=== PATIENT | female | born 1975 | race Caucasian/White ===

== ENCOUNTER 2018-12-06 17:39 | Emergency (ER) | payer BC ==
[2018-12-06 18:18] VITALS: BP 112/77
--- NOTE | 2018-12-06 18:32 | UC ---
Headache HPI - HPI Summary HPI Summary: 43-year-old female comes in with a chief complaint of the left sided headache. Headache started 5 days ago. Was a sudden onset it went from 0 to an 8 out of 10 over the course of about 10 minutes. Patient feels like is the worst headache of her life. When she takes Advil it does get rid of the headache but then the headache comes right back. Headache wakes her from sleep. No rash no fevers no chills no change in vision or speech no weakness or numbness. No history of migraines or headaches. No neck pain. - History Of Current Complaint Chief Complaint: UCHeadache Stated Complaint: HOLDER Time Seen by Provider: 12/06/18 18:21 Pain Intensity: 8 - Allergies/Home Medications Allergies/Adverse Reactions: Allergies Allergy/AdvReac Type Severity Reaction Status Date / Time No Known Allergies Allergy Verified 12/06/18 18:18 Home Medications: Home Medications Control 12/06/18 [History] PMH/Surg Hx/FS Hx/Imm Hx Previously Healthy: Yes - Surgical History Surgical History: Yes Surgery Procedure, Year, and Place: csection - Family History Known Family History: Positive: Non-Contributory - Social History Alcohol Use: None Substance Use Type: None Smoking Status (MU): Never Smoked Tobacco Review of Systems All Other Systems Reviewed And Are Negative: Yes Constitutional: Positive: Negative Skin: Positive: Negative Eyes: Positive: Negative ENT: Positive: Negative Respiratory: Positive: Negative Cardiovascular: Positive: Negative Gastrointestinal: Positive: Negative Motor: Positive: Negative Neurovascular: Positive: Negative Musculoskeletal: Positive: Negative Neurological: Positive: Negative Psychological: Positive: Negative Is Patient Immunocompromised?: No Physical Exam Triage Information Reviewed: Yes Appearance: Well-Appearing, Well-Nourished, Pain Distress - MILD Vital Signs: Initial Vital Signs Temp 98.1 F 12/06/18 18:13 Pulse 74 12/06/18 18:13 Resp 18 12/06/18 18:13 BP 112/77 12/06/18 18:13 Pulse Ox 100 12/06/18 18:13 Vital Signs Reviewed: Yes Eye Exam: Normal Eyes: Positive: Conjunctiva Clear ENT: Positive: Pharynx normal, TMs normal, Other - No rash on the side of the face on the left there is no tenderness to palpation of the scalp. No tenderness to palpation of the tragus or the mastoid. No tenderness of the TMJ or on the face. Dental: Positive: Other: - No obvious dental infection Neck: Positive: Supple, Nontender Respiratory: Positive: Lungs clear, Normal breath sounds, No respiratory distress Cardiovascular: Positive: RRR Musculoskeletal: Positive: Strength Intact, ROM Intact Neurological: Positive: Alert, Muscle Tone Normal, Other: - No focal neurologic deficit Psychological: Positive: Age Appropriate Behavior Skin Exam: Normal Skin: Negative: Rashes Headache Course/Dx - Course Course Of Treatment: Because patient reports is the worst headache of her life with sudden onset and it also wakes her from sleep I recommended further evaluation in the emergency department. Patient will go by POV. - Differential Dx/Diagnosis Provider Diagnosis: Head ache Discharge ED - Sign-Out/Discharge Documenting (check all that apply): Patient Departure All imaging exams completed and their final reports reviewed: No Studies - Discharge Plan Condition: Stable Disposition: HOME-RECOMMEND TO ED Patient Education Materials: Acute Headache (ED) Referrals: Max Baker MD [Primary Care Provider] - Additional Instructions: GO DIRECTLY TO THE EMERGENCY DEPARTMENT FOR FURTHER EVALUATION AND CARE OF YOUR HEADACHE. - Billing Disposition and Condition Condition: STABLE Disposition: Home-Recommend to ED
== END 2018-12-06 18:57 | disposition home health service (06) ==
LOC: UCCORT 17:39
DX: R51 Headache (principal)
CPT/HCPCS: 99202; G0463